=== PATIENT | male | born 1990 | race African-American/Black ===

== ENCOUNTER 2024-06-25 15:25 | Emergency (ER) | payer SELFPAY ==
[~2024-06-25] VITALS: Ht 170.2 cm; Wt 77.0 kg
[2024-06-25 15:35] VITALS: BP 150/95; PULSE 97; RESP 16; TEMP 36.8; O2SAT 97
== END 2024-06-25 18:37 | disposition home or self-care (01) ==
LOC: ER 15:25
DX: F41.9 Anxiety disorder, unspecified (principal); F12.90 Cannabis use, unspecified, uncomplicated; F15.90 Other stimulant use, unspecified, uncomplicated
CPT/HCPCS: 99281